=== PATIENT | female | born 1995 | race Caucasian/White ===

== ENCOUNTER 2018-05-31 14:54 | Emergency (ER) | payer MEDICAID, OTHER ==
[~2018-05-31] VITALS: Ht 157.5 cm; Wt 72.1 kg
[~2018-05-31 14:54] MED LIST: NO HOME MEDS
[2018-05-31 15:04] VITALS: Ht 157.5 cm; Wt 72.1 kg
[2018-05-31] MEDS ORDERED: IBUPROFEN 600 MG TAB PO ONE (17:30)
[2018-05-31] MEDS ORDERED: ATENOLOL 25 MG TAB PO ONE (18:30)
[2018-05-31 19:11] VITALS: BP 136/99; PULSE 74; RESP 19
[2018-05-31] MEDS ORDERED: ATEN-51 PO (19:57)
--- NOTE | 2018-05-31 20:28 | ERD ---
ER Documentation Chief Complaint Chief Complaint Complains of elevated BP since yesterday HPI 23-year-old female patient with no significant past medical history presents the ED stating that her blood pressure is elevated. Patient reports that about 1 month ago, her blood pressure was in the 180s. States that every time she checks her blood pressure, it is elevated. States that she would have sensations of headaches as well as blurred vision and nausea. Denies any chest pain, shortness of breath, vomiting, diarrhea, neck stiffness. Reports that her last menstruation was on May 20, 2018. ROS All systems reviewed and are negative except as per history of present illness. Medications Home Meds Active Scripts Atenolol* (Atenolol*) 25 Mg Tablet, 25 MG PO DAILY, #30 TAB Prov:EARLINE WOODS PA-C 05/31/18 Reported Medications [No Home Meds] No Conflict Check 12/11/11 Allergies Allergies: Coded Allergies: No Known Allergy (Unverified , 12/11/11) PMhx/Soc Medical and Surgical Hx: pt denies Surgical Hx History of Surgery: No Anesthesia Reaction: No Hx Neurological Disorder: Yes (MIGRAINES 1 YR) Hx Respiratory Disorders: No Hx Cardiac Disorders: No Hx Psychiatric Problems: No Hx Miscellaneous Medical Probl: No Hx Alcohol Use: No Hx Substance Use: No Hx Tobacco Use: No FmHx Family History: No diabetes, No coronary disease Physical Exam Vitals Vital Signs Date Temp Pulse Resp B/P (MAP) Pulse Ox O2 O2 Flow FiO2 Time Delivery Rate 05/31/18 98.2 74 19 136/99 98 Room Air 19:11 (111) 05/31/18 95 157/104 17:41 (121) 05/31/18 99.1 101 20 165/111 100 15:04 (129) Physical Exam Const: Oty-ohw-pwkswbihm, well-nourished. In no acute distress. Head: Atraumatic, normocephalic Eyes: Normal Conjunctiva without injection. No purulent discharge. PERRLA. EOMI ENT: Normal external ear. Ear canal without erythema. Tympanic membrane pearly fox without effusion or bulging. Nasal canal clear with normal turbinates. Moist oropharynx without tonsillar exudates. Non-erythematous pharynx. Uvula midline. No drooling. No trismus. Neck: No cervical midline tenderness. Full range of motion. No meningismus. No cervical lymphadenopathy. No JVD. Resp: Clear to auscultation bilaterally. No wheezing, rhonchi, rales, or crackles. No accessory muscle use. No retractions. Cardio: Regular rate and rhythm. No murmurs, rubs or gallops. Abd: Soft, non tender, non distended. Normal bowel sounds. No palpable masses. No rebound tenderness. No guarding. Negative McBurney's Point. Negative Taylor's Sign. Skin: Normal skin turgor. No petechiae or rashes Back: No midline tenderness. No CVA tenderness. Ext: No cyanosis, or edema. Distal pulses intact bilaterally. Neur: Awake and alert. Normal gait. Normal coordination. Cranial Nerves II- VII intact. Normal finger to nose. Muscle strength 5/5. Sensation intact. Psych: Normal Mood and Affect Results 24 hrs Laboratory Tests Test 05/31/18 18:16 05/31/18 18:22 White Blood Count 9.9 10^3/ul Red Blood Count 4.98 10^6/ul Hemoglobin 15.1 g/dl Hematocrit 43.9 % Mean Corpuscular Volume 88.2 fl Mean Corpuscular Hemoglobin 30.3 pg Mean Corpuscular Hemoglobin Concent 34.4 g/dl Red Cell Distribution Width 12.3 % Platelet Count 191 10^3/UL Mean Platelet Volume 12.2 fl Immature Granulocytes % 0.600 % Neutrophils % 56.8 % Lymphocytes % 32.5 % Monocytes % 8.0 % Eosinophils % 1.6 % Basophils % 0.5 % Nucleated Red Blood Cells % 0.0 /100WBC Immature Granulocytes # 0.060 10^3/ul Neutrophils # 5.6 10^3/ul Lymphocytes # 3.2 10^3/ul Monocytes # 0.8 10^3/ul Eosinophils # 0.2 10^3/ul Basophils # 0.1 10^3/ul Nucleated Red Blood Cells # 0.0 10^3/ul Urine Color YELLOW Urine Clarity SLIGHTLY CLOUDY Urine pH 5.0 Urine Specific Tyler 1.015 Urine Ketones NEGATIVE mg/dL Urine Nitrite NEGATIVE mg/dL Urine Bilirubin NEGATIVE mg/dL Urine Urobilinogen NEGATIVE mg/dL Urine Leukocyte Esterase 2+ Flo/ul Urine Microscopic RBC 3 /HPF Urine Microscopic WBC 22 /HPF Urine Squamous Epithelial Cells FEW /HPF Urine Hemoglobin 1+ mg/dL Urine Glucose NEGATIVE mg/dL Urine Total Protein NEGATIVE mg/dl Sodium Level 140 mmol/L Potassium Level 3.8 mmol/L Chloride Level 105 mmol/L Carbon Dioxide Level 23 mmol/L Anion Gap 12 Blood Urea Nitrogen 9 mg/dl Creatinine 0.48 mg/dl Est Glomerular Filtrat Rate mL/min > 60 mL/min Glucose Level 102 mg/dl Calcium Level 9.6 mg/dl POC Beta HCG, Qualitative NEGATIVE Current Medications Medications Dose Sig/Roni Start Time Status Last (Trade) Ordered Route PRN Stop Time Admin Dose Reason Admin Ibuprofen 600 mg ONCE ONCE 05/31/18 DC 05/31/18 (Motrin) PO 17:30 05/31/18 17:23 17:31 Atenolol 25 mg ONCE ONCE 05/31/18 DC 05/31/18 (Tenormin) PO 18:30 05/31/18 18:29 18:31 Procedures/MDM 23-year-old female patient with no significant past medical history presents to ED complaining of having an elevated blood pressure. Patient's blood pressure is 165/111. Initially patient was given ibuprofen 600 mg here in the ED for her headache, with slight improvement of her headache however patient was discussed with my supervising physician, Dr. Perla, patient's blood pressure is still 154/107. Patient was ordered a CBC, BMP, UA, urine for further evaluation and treatment. Patient was then given atenolol 25 mg here in the ED with improvement of her symptoms. Patient's blood pressure now is 136/99. CBC: No leukocytosis. No e/o of systemic infection. No e/o anemia. CMP: No e/o severe acidosis, alkalosis, renal failure, diabetic ketoacidosis. BUN and creatinine within normal limits. Urine: No leukocyte esterase, no nitrites, 1+ hematuria. No proteinuria noted. Patient should follow-up with her primary care physician for further evaluation and management of her blood pressure as well and is a referral to see a baby registry sales consultant. I have given patient 1 month of antihypertensive medications, atenolol 25 mg daily until patient can see her primary care physician. Low suspicion for kidney injury at this time. Low suspicion for acute myocardial infarction, pneumothorax, pericarditis, myocarditis, endocarditis, pneumonia, cardiac tamponade, pulmonary embolism, pleural effusion, AAA, aortic dissection, Boerhaave's syndrome, cardiac dysrhythmias,meningitis, intracranial bleed, seizure, stroke, TIA or other emergent conditions. Discussed with Dr. Perla, management and discharge plan. Diagnosis: Hypertension Discharge medications: Atenolol Follow up with primary care physician in 1-2 days. Instructed patient to return to the ED sooner for any worsening symptoms. Patient's questions were answered. Patient is hemodynamically stable. Patient understood and agreed with discharge plan. Patient discharged stable. Disclaimer: Inadvertent spelling and grammatical errors are likely due to EHR/dictation software use and do not reflect on the overall quality of patient care. Also, please note that the electronic time recorded on this note does not necessarily reflect the actual time of the patient encounter. Departure Diagnosis: Primary Impression: Hypertension Hypertension type: unspecified Qualified Codes: I10 - Essential (primary) hypertension Condition: Stable Patient Instructions: High Blood Pressure (Hypertension) Referrals: [facility] YOU HAVE RECEIVED A MEDICAL SCREENING EXAM AND THE RESULTS INDICATE THAT YOU DO NOT HAVE A CONDITION THAT REQUIRES URGENT TREATMENT IN THE EMERGENCY DEPARTMENT. FURTHER EVALUATION AND TREATMENT OF YOUR CONDITION CAN WAIT UNTIL YOU ARE SEEN IN YOUR DOCTORS OFFICE WITHIN THE NEXT 1-2 DAYS. IT IS YOUR RESPONSIBILITY TO MAKE AN APPOINTMENT FOR FOLOW-UP CARE. IF YOU HAVE A PRIMARY DOCTOR --you should call your primary doctor and schedule an appointment IF YOU DO NOT HAVE A PRIMARY DOCTOR YOU CAN CALL OUR PHYSICIAN REFERRAL HOTLINE AT IF YOU CAN NOT AFFORD TO SEE A PHYSICIAN YOU CAN CHOSE FROM THE FOLLOWING [facility] [address] [facility]. [facility] [address] [facility]. [facility] [address] [facility] [facility] [address] [facility]. [facility] [address] [facility]. [facility]. [address] [facility] YOU HAVE RECEIVED A MEDICAL SCREENING EXAM AND THE RESULTS INDICATE THAT YOU DO NOT HAVE A CONDITION THAT REQUIRES URGENT TREATMENT IN THE EMERGENCY DEPARTMENT. FURTHER EVALUATION AND TREATMENT OF YOUR CONDITION CAN WAIT UNTIL YOU ARE SEEN IN YOUR DOCTORS OFFICE WITHIN THE NEXT 1-2 DAYS. IT IS YOUR RESPONSIBILITY TO MAKE AN APPOINTMENT FOR FOLOW-UP CARE. IF YOU HAVE A PRIMARY DOCTOR --you should call your primary doctor and schedule and appointment IF YOU DO NOT HAVE A PRIMARY DOCTOR YOU CAN CALL OUR PHYSICIAN REFERRAL HOTLINE AT . IF YOU CAN NOT AFFORD TO SEE A PHYSICIAN YOU CAN CHOSE FROM THE FOLLOWING [facility] INSTITUTIONS: [facility] [address] [place] [address] [facility] [address] [place] [address] [facility] [address] [place] [address] [facility] URGENT CARE/SPECIALTIES Additional Instructions: Call your primary care doctor TOMORROW for an appointment during the next 2-3 days for management of your blood pressure as well as referral to see a baby registry sales consultant. See the doctor sooner or return here if your condition worsens before your appointment time. EARLINE WOODS PA-C May 31, 2018 20:28
== END 2018-05-31 20:07 | disposition home or self-care (01) ==
LOC: FTE 14:54
DX: I10 Essential (primary) hypertension (principal)
CPT/HCPCS: 80048; 81001; 81025; 85025; Z7502; Z7610; 99283